=== PATIENT | male | born 1980 | race Caucasian/White ===

== ENCOUNTER → 2019-04-14 | Outpatient (CLI) | payer BC ==
--- NOTE | 2019-04-18 11:09 | HM ---
HOLTER MONITOR REPORT Patient was monitored for 24 hours. The baseline rhythm is a sinus mechanism with normal conduction. The average rate 65 beats per minute, minimum 43 and maximum 120 beats per minute. Ventricular ectopic activity was not present. Supraventricular ectopic activity was present in the form of rare single PACs. No diary was available. CONCLUSION: 1. Sinus mechanism baseline rhythm. 2. No ventricular ectopic activity. 3. Rare supraventricular ectopic activity. 4. No diary was available. MMODL / IJN: [id number] /
== END | disposition home or self-care (01) ==
LOC: RADECHMAIN 13:44
PROVIDERS: ATTEND Family Medicine
DX: R00.1 Bradycardia, unspecified (principal); R55 Syncope and collapse
CPT/HCPCS: 93225; 93226

== ENCOUNTER 2020-08-15 07:58 | Day surgery (SDC) | payer BC ==
[2020-08-13 16:01] VITALS: BMI 24.3
[~2020-08-15 07:58] MED LIST: LACTATED RINGERS 1,000 ML IV SCH
[2020-08-15 08:21] VITALS: RESP 16; TEMP 98.3
[2020-08-15] MEDS ORDERED: LIDOCAINE 1% (10MG/ML) FOR IV START INTRADERMA ONE (08:25)
[2020-08-15] MEDS ORDERED: PROPOFOL 10 MG/ML 20 ML VIAL IV ONE (09:46)
[2020-08-15] MEDS ORDERED: LIDOCAINE 1% INJ 10MG/ML (20 ML MDV) ONE (09:46)
[2020-08-15] MEDS ORDERED: KETAMINE 10 MG/ML 20 ML VIAL ONE (09:46)
[2020-08-15] MEDS ORDERED: GLYCOPYRROLATE 0.2 MG/ML 2 ML VIAL ONE (09:46)
--- NOTE | 2020-08-15 10:06 | P.PCN ---
Date of Procedure: 08/15/20 Description of Procedure: BRIEF HISTORY: Patient is a 40-year-old male presenting for EGD for evaluation of celiac disease. The patient previously has serologic testing for celiac disease which was positive. He has been trying to adhere to a gluten-free diet over the past year. He recently had some issues with lower abdominal pain and cramping and presents for further evaluation. He had been avoiding gluten but states that he has been consuming them over the past week prior to test. PROCEDURE PERFORMED: Esophagogastroduodenoscopy with biopsy. PREOPERATIVE DIAGNOSIS: Celiac disease, abdominal pain. ESTIMATED BLOOD LOSS: Minimal. IV sedation per anesthesia. PROCEDURE: After informed consent was obtained, the patient was brought into the endoscopy unit. IV sedation was administered by Anesthesia under continuous monitoring. Initially the Olympus GIF-190 video endoscope was inserted into the mouth. Esophagus intubated without any difficulty. It was gradually advanced into the stomach and duodenum and carefully examined. The bulb and the second part of the duodenum appeared normal, with biopsies taken to rule out celiac disease with positive prior serologic testing the patient had been avoiding gluten over the past year states he has been eating wheat products over the past week in anticipation of the test. The scope at this time was withdrawn to the stomach, adequately insufflated with air, and upon careful examination, mucosa of the antrum, body, cardia and the fundus appeared normal, except for some mild punctate erythema in the antrum and body suggestive of mild gastritis with biopsies taken. The scope was then withdrawn into the esophagus. The GE junction was located at 42 cm from the incisors, and biopsies. The esophagus appeared normal. There were no erosions or ulcerations seen and the patient tolerated the procedure well. IMPRESSION: 1. Mild gastritis. 2. Biopsies of the antrum and body, duodenum and GE junction. RECOMMENDATIONS: The findings of this examination were discussed with the patient. Okay to resume diet. Okay to resume medications. Continue avoiding gluten products for now. Await pathology from biopsies.
[2020-08-15 10:22] VITALS: PULSE 61
[2020-08-15 11:06] VITALS: BP 113/71
== END 2020-08-15 11:20 | disposition home or self-care (01) ==
LOC: ORWHC2ENDO 07:58
PROVIDERS: ATTEND Internal Medicine
DX: K29.50 Unspecified chronic gastritis without bleeding (principal); K20.90 Esophagitis, unspecified without bleeding; K90.0 Celiac disease; Z91.018 Allergy to other foods; Z98.818 Other dental procedure status
CPT/HCPCS: 88305; 43239; J2001; J2704

== ENCOUNTER → 2020-09-06 | Outpatient (CLI) | payer BC ==
--- NOTE | 2020-09-06 17:30 | CT ---
EXAMINATION TYPE: CT abdomen pelvis w con DATE OF EXAM: 09/06/2020 COMPARISON: None INDICATION: Left lower quadrant pain DLP: 526.4 mGycm, Automated exposure control for dose reduction was used. CONTRAST: 100 mL of Isovue 370. Study performed with Oral Contrast TECHNIQUE: Axial images were obtained from above the diaphragm to the pubic rami in the axial plane a t 5 mm thick sections. Reconstructed images are reviewed on the computer in the coronal plane. FINDINGS: Limited CT sections are obtained the lung bases. The lung bases are clear. CT ABDOMEN: Liver: Normal Spleen: Normal Pancreas: Normal Adrenal glands: The adrenal glands are normal. Gallbladder: Normal Kidneys: No masses are evident. No hydronephrosis is present. No cysts are present. Delayed images were obtained through the kidneys, which remain unremarkable. Aorta: Normal Inferior vena cava: Normal. CT PELVIS: Loops of bowel within the abdomen and pelvis are normal. There are loops of bowel which are incom pletely distended or lack oral contrast limiting their evaluation. Appendix: Normal as visualized. Urinary bladder: Normal. Genitourinary structures: Prostate is normal. Osseous structures: No suspicious lytic or sclerotic lesions. IMPRESSIONS: 1. Normal CT abdomen and pelvis.
== END | disposition home or self-care (01) ==
LOC: RADCTMAIN 11:00
PROVIDERS: ATTEND Internal Medicine
DX: Z12.89 Encounter for screening for malignant neoplasm of other sites (principal); Z80.0 Family history of malignant neoplasm of digestive organs
CPT/HCPCS: 74177; Q9967

== ENCOUNTER 2023-09-17 10:58 | Day surgery (SDC) | payer BC ==
[2023-09-16 09:00] VITALS: BMI 22.3
[2023-09-17] MEDS: LACTATED RINGERS 1,000 ML IV SCH (12:21)
[2023-09-17 12:37] VITALS: RESP 16; TEMP 97.8
[2023-09-17] MEDS ORDERED: fentaNYL (PF) 50 MCG/ML 2 ML AMP ONE (13:00)
[2023-09-17] MEDS ORDERED: PROPOFOL 10 MG/ML 20 ML VIAL IV ONE (13:00)
--- NOTE | 2023-09-17 13:28 | P.PCN ---
Date of Procedure: 09/17/23 Procedure(s) Performed: BRIEF HISTORY: Patient is a 43-year-old pleasant white male scheduled for an elective colonoscopy as a part of screening for colon cancer and family history of colon cancer. She has family history of colon cancer diagnosed in paternal aunt at age extremely grandmother at age 70. PROCEDURE PERFORMED: Colonoscopy. PREOPERATIVE DIAGNOSIS: Screening for colon cancer and family history of colon cancer. IV sedation per Anesthesia. PROCEDURE: After informed consent was obtained, the patient, was brought into the endoscopy unit. IV sedation was administered by Anesthesia under continuous monitoring. Digital rectal examination was normal. Initially the Olympus CF-160 flexible video colonoscope was then inserted in the rectum, gradually advanced into the cecum without any difficulty. Careful examination was performed as the scope was gradually being withdrawn. Ileocecal valve and the appendiceal orifice were visualized and appeared normal. Prep was excellent. Mucosa of the cecum, ascending colon, transverse colon, descending colon, sigmoid colon, and rectum appeared normal. Retroflexion was performed in the rectum and no lesions were seen. The patient tolerated the procedure well. IMPRESSION: Normal-appearing colon from rectum to cecum with no evidence of colorectal neoplasia . RECOMMENDATIONS: Findings of this examination were discussed with the patient as well his family. He was advised to have a repeat screening colonoscopy in 5 years because of family history of colon cancer.
[2023-09-17 14:11] VITALS: BP 104/67; PULSE 61
== END 2023-09-17 14:06 | disposition home or self-care (01) ==
LOC: ORWHC2ENDO 10:58
PROVIDERS: ATTEND Internal Medicine Gastroenterology
DX: Z12.11 Encounter for screening for malignant neoplasm of colon (principal); K90.0 Celiac disease; Z80.0 Family history of malignant neoplasm of digestive organs; Z91.018 Allergy to other foods; Z79.899 Other long term (current) drug therapy
CPT/HCPCS: 45378; J3010; J2704